=== PATIENT | male | born 1990 | race Hispanic/Latino ===

== ENCOUNTER 2021-05-15 19:05 | Emergency (ER) | payer OTHER ==
[~2021-05-15] VITALS: Ht 172.7 cm; Wt 124.7 kg
== END 2021-05-15 21:45 | disposition home or self-care (01) ==
LOC: ER 19:48
DX: S16.1XXA Strain of muscle, fascia and tendon at neck level, initial encounter (principal); M54.6 Pain in thoracic spine; S50.01XA Contusion of right elbow, initial encounter; S80.01XA Contusion of right knee, initial encounter; R51.9 Headache, unspecified; V44.5XXA Car driver injured in collision with heavy transport vehicle or bus in traffic accident, initial encounter; Y92.488 Other paved roadways as the place of occurrence of the external cause
CPT/HCPCS: 72040; 72070; 72100; 99283